=== PATIENT | female | born 1955 | race Caucasian/White ===

== ENCOUNTER 2019-05-20 10:23 | Emergency (ER) | payer OTHER ==
[~2019-05-20] VITALS: Ht 162.6 cm; Wt 90.7 kg
[~2019-05-20 10:23] MED LIST: ADVAIR 250-501 EACH INH; ADVAIR 500-501 EACH NS; ALBUTEROL SUL5 MG/M1 IH; ASPIRIN EC81 M1 PO; B-121000 MCG PO; CALCIUM OYS SH1 EACH PO; CALCIUM OYSTER500 MG PO; CLARITIN10 M2 PO; CO Q-10200 MG PO; FENOFIBRATE160 MG PO; FLONASE NS; FLOVENT DISKUS50 MCG IH; GLUCOSAMINE &1 EAC1 PO; IBUPROFEN 600600 M1 PO; KRILL OIL500 MG PO; LEVAQUIN 750 M750 MG PO; MEGARED PLANT-300 MG PO; MUCINEX D TABL1 EAC1 PO; MULTIVITAMINS PO; OMEGA-3 EC SOF1 EACH PO; OSTEO BI-FLEX1 EACH PO; PREVACID15 MG PO; SINGULAIR 10 MG10 M1 PO; TIGER BALM; TRAMADOL 50 MG50 MG PO; TYLENOL EX-STR500 M2 PO; VITAMIN D1000 UNI1 PO
[2019-05-20] MEDS ORDERED: VENTOLIN HFA 1818 GM INH (10:45)
[2019-05-20] MEDS ORDERED: PREDNISONE 10 M10 MG PO ×2 (10:45→12:56)
[2019-05-20 11:09] LABS: ABSOLUTE BASOPHILS 0.1 thou/uL (0.0-0.2); ABSOLUTE EOSINOPHILS 0.1 thou/uL (0.0-0.7); ABSOLUTE LYMPHOCYTES 1.4 thou/uL (0.8-5.3); ABSOLUTE MONOCYTES 0.6 thou/uL (0.0-1.2); ABSOLUTE NEUTROPHILS 7.2 thou/uL (1.6-8.1); BASOPHILS 0.6 %; EOSINOPHILS 1.4 %; HEMATOCRIT 42.9 % (37.0-47.0); HEMOGLOBIN 14.6 gm/dL (12.0-15.0); LYMPHOCYTES 14.4 %; MCH 31.6 pg (26.0-34.0); MCHC 34.1 g/dL (28.0-37.0); MCV 92.7 fL (80.0-100.0); MONOCYTES 6.7 %; MPV 8.4 fl. (7.2-11.1); NUCLEATED RBCS 0 /100WBC; PLATELET COUNT* 245 thou/uL (150-400); POLYS 76.9 %; RBC 4.63 mil/uL (4.20-5.00); RDW-CV 12.7 % (10.5-14.5); WBC 9.4 thou/uL (4.0-11.0)
[2019-05-20 11:55] LABS: ANION GAP 12 mmol/L (7-16); BUN 12 mg/dL (7-18); CALCIUM 9.1 mg/dL (8.5-10.1); CHLORIDE 104 mmol/L (98-107); CO2 23 mmol/L (21-32); CREATININE 0.6 mg/dL (0.6-1.3); GLUCOSE 114 mg/dL (70-99); POTASSIUM 4.2 mmol/L (3.5-5.1); SODIUM 139 mmol/L (136-145)
[2019-05-20 12:07] LABS: ALBUMIN 3.6 g/dL (3.4-5.0); ALKALINE PHOSPHATASE 82 U/L (46-116); NT-PRO BRAIN NAT PEPTIDE 30 pg/mL (<300); SGOT 22 U/L (15-37); SGPT 26 U/L (30-65); TOTAL BILIRUBIN 0.3 mg/dL (<0.1-1.0); TOTAL PROTEIN 7.8 g/dL (6.4-8.2); TROPONIN-I LEVEL <0.06 ng/mL (<0.06)
[2019-05-20] MEDS ORDERED: DOXYCYCLINE 10100 MG PO (12:56)
[2019-05-20 13:06] VITALS: BP 155/81
--- NOTE | 2019-05-20 15:53 | EKG ---
[place] [address] ELECTROCARDIOGRAM REPORT Name: MELODY ROWE Room: [facility]#: [id number] Admission: 05/20/19 Attend Phys: Discharge: 05/20/19 Date of : 57 Report #: [id number] THIS REPORT FOR: //name// [facility] ED Test Date: 2019-05-20 Test Time: 10:39:19 Pat Name: MELODY JAE Department: Room: Gender: F Kier Hand: JOHN : 1955 Requested By: Anum Deng Order Number: [id number] MD: Heraclio Mayfield Measurements Intervals [place] Rate: 89 P: 64 DC: 135 QRS: -21 QRSD: 106 T: 23 QT: 385 QTc: 469 Interpretive Statements Sinus rhythm Probable inferior infarct, old Baseline wander in lead(s) V4,V5,V6 Compared to ECG 05/08/2014 14:56:04 No significant changes Electronically Signed On 05-20-2019 15:53:33 CDT by Heraclio Mayfield [email or web address] <ELECTRONICALLY SIGNED> By: Heraclio Mayfield MD, [facility] 05/20/19 [id number] Heraclio Mayfield MD, [facility] /EPI
== END 2019-05-20 13:08 | disposition home or self-care (01) ==
LOC: M.ERS 10:23
PROVIDERS: Nurse Practitioner Family
DX: J45.901 Unspecified asthma with (acute) exacerbation (principal); M19.90 Unspecified osteoarthritis, unspecified site; Z88.1 Allergy status to other antibiotic agents; Z88.8 Allergy status to other drugs, medicaments and biological substances; Z88.0 Allergy status to penicillin; Z91.040 Latex allergy status